=== PATIENT | male | born 1970 | race Caucasian/White ===

== ENCOUNTER → 2017-11-13 | Day surgery (SDC) | payer OTHER ==
[2017-09-24 12:49] VITALS: BMI 23.0
[2017-11-06 15:45] VITALS: Ht 175.3 cm; Wt 70.5 kg
[~2017-11-13] VITALS: Ht 175.3 cm; Wt 70.5 kg
[~2017-11-13] MED LIST: ATROPINE SULFATE 0.1 MG/ML 5ML SYR IV PRN; BETAMETH SOD PHOS/ACETATE IA 6 MG/ML ONE; BUPIVACAINE 0.5 % 5 MG/1 ML MPF 30ML VIAL ONE; CEFAZOLIN 1000MG IV PUSH 7.5 ML IV SCH; FENTANYL CITRATE INJ 50 MCG/1 ML 2 ML VIAL IV PRN; KETOROLAC TROMETHAMINE 30 MG/ML VIAL IV. PRN; LACTATED RINGER'S 1000ML 1,000 ML IV SCH; LIDOCAINE HCL 1% 20 ML VIAL ONE; ONDANSETRON INJ 2 MG/ML 2 ML VIAL IV PRN; OXYCODONE/ACETAMINOPHEN 5-325 TAB PO PRN; PEPCID PO; SODIUM CHLORIDE 0.9% 1000ML 1,000 ML IV SCH; TRAM-10 PO; WELLBUTRIN PO
--- NOTE | 2017-11-13 06:41 | History & Physical Bridge - [place] ---
H&P Re-Evaluation Bridge Note: I have examined the patient, reviewed the History & Physical and in the interval since the performance of the History & Physical I have noted the following changes of clinical significance: No changes noted
--- NOTE | 2017-11-13 07:18 | [facility] Post Operative Brief Note ---
Immediate Operative Summary Operative Date Nov 13, 2017. Pre-Operative Diagnosis Left Carpal Tunnel Syndrome, Left Little Trigger Finger Post-Operative Diagnosis Same Procedure(s) Performed Left Carpal Tunnel Release, Left Little Finger Cortisone Injection Surgeon Dr. Landin Worm Packer Surgeon(s) Carlos Ambrocio PA-C Estimated Blood Loss None Findings Consistent with Post-Op Diagnosis Specimens None Drains None Anesthesia Type MAC Complication(s) none Disposition Accompanied Pt To Recovery: no Disposition:
[2017-11-13 07:21] VITALS: TEMP 36.9
--- NOTE | 2017-11-13 07:23 | Discharge Instructions-SurgCtr ---
Discharge Instructions Date of Service Nov 13, 2017. Visit Reason for Visit: Left Carpal Tunnel Syndrome; LEFT SMALL FINGER TRIGGER FINGER Discharge Discharge Diagnosis / Problem: SAME ABOVE Discharge Goals Goal(s): Decrease discomfort, Improve function Activity Recommendations Activity Limitations: as noted below Lifting Limitations: until after follow-up appointment Exercise/Sports Limitations: until after follow-up appointment Shower/Bathe: keep incision dry Anesthesia . Post Anesthesia Instructions: If you have had General Anesthesia or IV Sedation: * Do not drive today. * Resume driving when surgeon permits. * Do not make important decisions or sign legal documents today. * Call surgeon for: 1. Temperature elevations greater than 101 degrees F. 2. Uncontrollable pain. 3. Excessive bleeding. 4. Persistent nausea and vomiting. 5. Medication intolerance (nausea, vomiting or rash). * For nausea and vomiting use only clear liquids such as: tea, soda, bouillon until nausea subsides, then gradually increase diet as tolerated. * If you have any concerns or questions, call your surgeon's office. If physician is unavailable and it is an emergency, call 911 or go to the nearest emergency room. . Instructions / Follow-Up Instructions / Follow-Up MEDICATIONS: * Resume previous medications unless instructed otherwise by your surgeon. * Always take pain medication on a full stomach or with food to avoid upset stomach. * Do not drink alcohol or drive while taking narcotics. * Ibuprofen or Tylenol may be taken if narcotic not needed. SPECIAL CARE INSTRUCTIONS: __ None _X_ Keep extremity elevated and iced x 48 hours; apply ice 20-30 minutes 8-10 times/day. May remove at night. __ Sling __24 hrs/day __ Remove at night __ Shoulder Immobilizer __ 24 hrs/day __ Remove at night _X_ Dressing _X_ Maintain until seen in office, may shower with plastic over site __ Remove dressings in 24-48 hours and then may shower __ Cover incisions with band-aids after showering __ Do not remove steri-strips Call physician if chills or temperature rises above 102 degrees or pain unrelieved by prescribed pain medications at . . Diet Recommendations Home Diet: resume previous diet Procedures Procedures Performed: Left Carpal Tunnel Release, Left Little Finger Cortisone Injection Pending Studies Studies pending at discharge: no Medical Emergencies . Who to Call and When: Medical Emergencies: If at any time you feel your situation is an emergency, please call 911 immediately. . Non-Emergent Contact Non-Emergency issues call your: Primary Care Provider . . "Provider Documentation" section prepared by David Ambrocio. .
--- NOTE | 2017-11-13 07:29 | Anesthesia Progress Nt - [facility] ---
Anesthesia Post Op Note Date & Time Nov 13, 2017 at 07:29 Vital Signs Vital Signs Past 12 Hours Date Time Temp Pulse Resp B/P (MAP) Pulse Ox O2 Delivery O2 Flow Rate FiO2 11/13/17 06:28 36.7 76 22 137/87 (104) 97 Room Air Notes Mental Status: alert / awake / arousable, participated in evaluation Pt Amnestic to Procedure: Yes Nausea / Vomiting: adequately controlled Pain: adequately controlled Airway Patency, RR, SpO2: stable & adequate BP & HR: stable & adequate Hydration State: stable & adequate Anesthetic Complications: no major complications apparent
[2017-11-13 07:44] VITALS: BP 128/82; PULSE 60; O2SAT 96
--- NOTE | 2017-11-13 07:55 | OPERATIVE REPORT ---
DATE OF OPERATION: 11/13/2017 PREOPERATIVE DIAGNOSIS: Left carpal tunnel syndrome with left little trigger finger. POSTOPERATIVE DIAGNOSIS: Same. PROCEDURES: 1. Decompression median nerve release transverse carpal ligament, left wrist. 2. Injection, cortisone at A1 rachel of the left little finger. SURGEON: Manuel Landin MD. BATTER DEPOSITOR: David Ambrocio PA-C. ANESTHESIOLOGIST: Roque Steel MD. ANESTHESIA: Local with IV sedation. DRAINS: None. COMPLICATIONS: None. CONDITION: The patient tolerated the procedure well and returned to recovery in apparent satisfactory condition. 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 We had long discussions with him about involvement of his ulnar nerve at the elbow. It was more of his tendonitis. There was question of some ulnar neuritis that resolved with oral cortisone. Continued to have carpal tunnel complaints today. When he came into the surgical center, he was having pain and triggering of his little finger, it just happened a day or so ago. We elected after talking with him to go ahead and just do the cortisone shot. He had no other symptoms prior to this. Procedure, expected outcome, side effects were all explained in detail. DESCRIPTION OF PROCEDURE: The patient was taken to the OR at which time he was placed supine on the operating table. The left hand was prepped and draped in the usual sterile fashion for this surgery. The anticipated incision site was infiltrated with 1% Xylocaine. A forearm tourniquet was placed on the arm and tourniquet was placed up to 250 mmHg. Incision was made vertically over the transverse carpal tunnel ligament. Dissection was done down until the palmar fascia was identified and divided with a 15-blade. The transverse carpal ligament was identified and also divided with the 15-blade and upbiting scissors. A small portion of the forearm fascia was divided also. Electrocautery was used to control any areas of bleeding. The nerve was freed up from any scar tissue and adequately decompressed. The wound then was copiously irrigated. It was closed then with interrupted 4-0 nylon sutures. Marcaine without Epinephrine was placed in the skin edges. It was closed in a layered fashion. We placed a sterile dressing of Xeroform, 4 x 4, volar splint, and an Jean-Paul bandage. We went ahead and under sterile conditions injected the A1 rachel of the left little finger and then injection site was incorporated into the postop dressing for the carpal tunnel and returned to recovery in apparent satisfactory condition. DISPOSITION: The patient was returned back to the recovery room in apparent satisfactory condition. I attest to the content of the Intraoperative Record and any orders documented therein. Any exception s are noted below.
== END | disposition home or self-care (01) ==
LOC: X.SURG 06:16
PROVIDERS: ATTEND Orthopaedic Surgery
DX: G56.02 Carpal tunnel syndrome, left upper limb (principal); M65.352 Trigger finger, left little finger; Z90.89 Acquired absence of other organs; Z98.818 Other dental procedure status; Z79.899 Other long term (current) drug therapy

== ENCOUNTER → 2017-11-26 | Outpatient (CLI) | payer OTHER ==
[~2017-11-26] MED LIST changes: -ATROPINE SULFATE 0.1 MG/ML 5ML SYR IV PRN; -BETAMETH SOD PHOS/ACETATE IA 6 MG/ML ONE; -BUPIVACAINE 0.5 % 5 MG/1 ML MPF 30ML VIAL ONE; -CEFAZOLIN 1000MG IV PUSH 7.5 ML IV SCH; -FENTANYL CITRATE INJ 50 MCG/1 ML 2 ML VIAL IV PRN; -KETOROLAC TROMETHAMINE 30 MG/ML VIAL IV. PRN; -LACTATED RINGER'S 1000ML 1,000 ML IV SCH; -LIDOCAINE HCL 1% 20 ML VIAL ONE; -ONDANSETRON INJ 2 MG/ML 2 ML VIAL IV PRN; -OXYCODONE/ACETAMINOPHEN 5-325 TAB PO PRN; -SODIUM CHLORIDE 0.9% 1000ML 1,000 ML IV SCH
--- NOTE | 2017-11-26 13:36 | DIAGNOSTIC IMAGING REPORT ---
LEFT FIFTH FINGER 4 VIEWS CLINICAL HISTORY: Left fifth finger pain COMPARISON: None. DISCUSSION: No fractures are visualized. There are no erosive or destructive changes. There is soft tissue swelling most pronounced at the level of the proximal to phalangeal joint IMPRESSION: 1. Soft tissue swelling 2. No evidence of acute fracture 3. No destructive lesions are visualized Electronically signed by: Mariusz Lamas M.D. 11/26/2017 1:35 PM Dictated Date/Time: 11/26/2017 1:34 PM
== END | disposition home or self-care (01) ==
LOC: C.RADBC 13:22
PROVIDERS: ATTEND Orthopaedic Surgery
DX: M79.645 Pain in left finger(s) (principal); R22.32 Localized swelling, mass and lump, left upper limb

== ENCOUNTER → 2018-03-01 | Outpatient (CLI) | payer OTHER | END | disposition home or self-care (01) | LOC: C.LAB 07:08 | PROVIDERS: ATTEND Family Medicine | DX: Z00.00 Encounter for general adult medical examination without abnormal findings (principal) ==